=== PATIENT | female | born 1995 | race Hispanic/Latino ===

== ENCOUNTER 2018-03-29 10:33 | Emergency (ER) | payer OTHER ==
[2018-03-29 11:05] VITALS: BP 122/77; PULSE 78; RESP 20; TEMP 97.8; O2SAT 98
--- NOTE | 2018-03-29 11:08 | ED PDOC ---
Upper Extremity Pain/Injury Time Seen by Provider: 03/29/18 11:06 Chief Complaint (Nursing): Upper Extremity Problem/Injury Chief Complaint (Provider): Finger tip laceration History Per: Patient History/Exam Limitations: no limitations Onset/Duration Of Symptoms: Hrs (one) Current Symptoms Are (Timing): Still Present Quality: Sharp, "Pain" Severity: Mild Pain Scale Rating Of: 3 Additional Complaint(s): Pt presents after suffering a laceration to the distal phalynx of the second digit of her right hand after injuring it with a lightstand on a movie set while at work. Pt distal nail was traumatically lost, there is mild bleeding and digit will be in need of debridement. Pt indicates no loss of sensation at the distal phalynx and no deterioration in ROM. Pt is not allergic to any medication Past Medical History Reviewed: Historical Data, Nursing Documentation, Vital Signs Vital Signs: Last Vital Signs Temp 97.8 F 03/29/18 11:01 Pulse 78 03/29/18 11:01 Resp 20 03/29/18 11:01 BP 122/77 03/29/18 11:01 Pulse Ox 98 03/29/18 11:01 - Family History Family History: States: No Known Family Hx - Immunization History Hx Tetanus Toxoid Vaccination: No Hx Influenza Vaccination: No Hx Pneumococcal Vaccination: No - Home Medications Home Medications: Ambulatory Orders Medication Instructions Recorded Cephalexin [cephalexin] 500 mg PO QID #48 cap 03/29/18 Ibuprofen [Motrin] 600 mg PO QID #40 tab 03/29/18 oxyCODONE/Acetaminophen [Percocet 1 ea PO TID #15 tab 03/29/18 5/325 mg Tab] - Allergies Allergies/Adverse Reactions: Allergies Allergy/AdvReac Type Severity Reaction Status Date / Time cinnamon Allergy hives,itchy Verified 03/29/18 13:09 throat Review of Systems Skin: Positive for: Bruising, Other (as per HPI- second digit distal phalynx of right hand with distal laceration and nail loss. Mild bleeding that is undercontrol) - ECG O2 Sat by Pulse Oximetry: 98 Medical Decision Making Medical Decision Making: Finger Xray indicates fracture of distal phalanyx of second digit. Wound debrided, and wrapped inaccord protocol for wound care Pt referred to hand surgeon for follow on care Antibiotics - Keflex 500mg Qid prescribd Dr Bridgett Soriano consulted and conducted bedside repairs to the patient's distal phalynx; keflex 500mg qid [id number]; percocet 5/325 tid #15; motrin 600mg qid #[address] Bo perales Disposition - Clinical Impression Clinical Impression: Fracture of distal phalanx of finger - Patient ED Disposition Is Patient to be Admitted: No Discussed With : Bridgett Soriano (see notes for followup) Doctor Will See Patient In The: Office Counseled Patient/Family Regarding: Studies Performed, Diagnosis, Need For Followup - Disposition Referrals: Bridgett Soriano MD [Medical Doctor] - Disposition: Routine/Home Disposition Time: 15:01 Condition: STABLE Prescriptions: Cephalexin [cephalexin] 500 mg PO QID #48 cap Ibuprofen [Motrin] 600 mg PO QID #40 tab oxyCODONE/Acetaminophen [Percocet 5/325 mg Tab] 1 ea PO TID #15 tab Instructions: Finger Fracture Forms: [facility] ([place])
[2018-03-29] MEDS ORDERED: Lidocaine 1% Inj (20ml) IJ ONE (12:34)
[2018-03-29] MEDS ORDERED: Lidocaine 1% Inj (20ml) ONE (13:00)
[2018-03-29] MEDS ORDERED: Tdap Vaccine 0.5 ml Vial (10-64 yrs) IM ONE ×2 (13:20→13:41)
[2018-03-29] MEDS ORDERED: Lidocaine 2% w Epi 1:100,000 Inj IJ ONE (13:40)
--- NOTE | 2018-03-30 11:01 | RAD ---
PROCEDURE: Right Hand Radiographs. HISTORY: r/o fx COMPARISON: None. FINDINGS: BONES: Fracture of the tuft of the 2nd digit with soft tissue laceration. JOINTS: Normal. No osteoarthritic changes. SOFT TISSUES: See above. OTHER FINDINGS: None. IMPRESSION: Fracture of the tuft of the 2nd digit with soft tissue laceration.
== END 2018-03-29 15:03 | disposition home or self-care (01) ==
LOC: H.ER 10:33
DX: S62.630A Displaced fracture of distal phalanx of right index finger, initial encounter for closed fracture (principal); S61.309A Unspecified open wound of unspecified finger with damage to nail, initial encounter; Z23 Encounter for immunization